=== PATIENT | male | born 1985 | race Caucasian/White ===

== ENCOUNTER 2023-04-19 11:36 | Emergency (ER) | payer BC, SELFPAY ==
[2023-04-19 11:37] VITALS: BP 153/119; PULSE 79; RESP 16; TEMP 36.2; O2SAT 98; BMI 28.5
--- NOTE | 2023-04-19 11:53 | EKG12_ITS ---
Test Reason : DIZZINESS Blood Pressure : / mmHG Vent. Rate : 079 BPM Atrial Rate : 079 BPM P-R Int : 150 ms QRS Dur : 086 ms QT Int : 364 ms P-R-T Axes : 025 -18 -02 degrees QTc Int : 417 ms Normal sinus rhythm Minimal voltage criteria for LVH, may be normal variant ( R in aVL ) Borderline ECG Confirmed by DAVID DUTTON, NAGA ([id number]), general expeditor HENRI ROBISON ([id number]) on 04/20/2023 11:03:38 AM Referred By: Confirmed By:NAGA HERNANDEZ MD
--- NOTE | 2023-04-19 11:55 | EX.ED.DYSGE1 ---
HPI <JELANI Koch - Last Filed: 04/19/23 15:00> History of Present Illness Chief Complaint: Dizziness Narrative Narrative: 38-year-old male with no past medical history presents with lightheadedness that started while standing at work this morning. He had been working for 5+ hours at that point. He states he had a C shaped blue flashing light in both eyes. No vision loss or double vision. No headache, chest pain, palpitations, shortness of breath, or N/V/D. He felt a little better with sitting down but still feels lightheaded and out of it so presents for evaluation. He takes no medications PFSH <JELANI Koch - Last Filed: 04/19/23 15:00> PFSH Home Medications No Known/Unobtainable [No Known Home Medications] 02/18/14 [History Last Taken Unknown] Allergy/AdvReac Type Severity Reaction Status Date / Time amoxicillin Allergy Rash Verified 10/06/18 09:34 Penicillins Allergy Rash Verified 10/06/18 09:34 Social History (Updated 10/06/18 @ 10:07 by JELANI Brian) Smoking Status: Never smoker alcohol intake: current ROS <JELANI Koch - Last Filed: 04/19/23 15:00> ROS ED ROS Narrative Constitutional: Negative for fever, chills, malaise. CVS: Negative for palpitations, chest pain, syncope. Respiratory: Positive for cough. Negative for shortness of breath. GI: Negative for abdominal pain, nausea, vomiting, diarrhea, melena, hematochezia. : Negative for dysuria. Neuro: Negative for headache, motor/sensory dysfunction. EXAM <JELANI Koch - Last Filed: 04/19/23 15:00> Physical Exam Narrative Exam Narrative: CONST: Patient sitting in no acute distress. EYES: Normal inspection. PERRL, EOMI, no nystagmus. No visual field deficits. ENT: Normal inspection, moist mucous membranes. NECK: Normal inspection. RESP: No respiratory distress, CTAB. CVS: Regular rate and rhythm, no murmur, no gallop. ABD: Soft and nontender, no guarding or rebound, nondistended. SKIN: Color normal, no rash, warm, dry, intact. EXTREMITIES: Normal appearance, no pedal edema. NEURO: Oriented x4. PSYCH: Normal affect. Const Vital Signs: 04/19/23 11:37 04/19/23 12:15 04/19/23 13:37 Temperature 97.2 F L Temperature Source Temporal Pulse Rate 79 87 Pulse Rate [Lying] 88 Pulse Rate [Sitting (for 1 minute prior to obtaining)] 82 Pulse Rate [Standing (for 1 minute prior to obtaining)] 97 Respiratory Rate 16 18 Blood Pressure 153/119 H Blood Pressure [Lying] 124/78 H Blood Pressure [Sitting (for 1 minute prior to obtaining)] 131/93 H Blood Pressure [Standing (for 1 minute prior to obtaining)] 137/96 H Blood Pressure Mean 130 Blood Pressure Mean [Lying] 93 Blood Pressure Mean [Sitting (for 1 minute prior to obtaining)] 105 Blood Pressure Mean [Standing (for 1 minute prior to obtaining)] 109 Pulse Ox 98 100 Oxygen Delivery Method Room Air <Dr. Buster Chaves DO - Last Filed: 04/19/23 13:32> Physical Exam Const Vital Signs: 04/19/23 11:37 04/19/23 12:15 04/19/23 13:37 Temperature 97.2 F L Temperature Source Temporal Pulse Rate 79 87 Pulse Rate [Lying] 88 Pulse Rate [Sitting (for 1 minute prior to obtaining)] 82 Pulse Rate [Standing (for 1 minute prior to obtaining)] 97 Respiratory Rate 16 18 Blood Pressure 153/119 H Blood Pressure [Lying] 124/78 H Blood Pressure [Sitting (for 1 minute prior to obtaining)] 131/93 H Blood Pressure [Standing (for 1 minute prior to obtaining)] 137/96 H Blood Pressure Mean 130 Blood Pressure Mean [Lying] 93 Blood Pressure Mean [Sitting (for 1 minute prior to obtaining)] 105 Blood Pressure Mean [Standing (for 1 minute prior to obtaining)] 109 Pulse Ox 98 100 Oxygen Delivery Method Room Air MDM <JELANI Koch - Last Filed: 04/19/23 15:00> [facility] Narrative Medical decision making narrative: Patient presents with lightheadedness. He states he had some blue flashing lights in both eyes which has resolved. He appears well and nontoxic. Vital signs stable. His exam is unremarkable. He has no focal neurological deficits so I do not think a CT brain is indicated. Orthostatic vital signs are negative prior to administration of IV fluids and blood work was ordered. CBC and BMP are within normal limits. EKG is sinus rhythm with no ischemic changes and troponin is 6. He has no chest pain, shortness of breath, or abnormal vital signs I do not suspect PE or think this needs worked up. CXR shows no acute process. He states he feels better after IV fluids will be discharged home to follow-up with primary care. Lab Data Attestation: I reviewed the patient's lab results. Labs: Laboratory Results - last 24 hr 04/19/23 12:00 WBC 7.4 RBC 5.01 Hgb 15.1 Hct 43.3 MCV 86.4 MCH 30.1 MCHC 34.9 RDW Std Deviation 39.1 RDW Coeff of Marisa 12.9 Plt Count 207 MPV 11.0 Immature Gran % (Auto) 1.300 H Neut % (Auto) 66.6 Lymph % (Auto) 22.7 [place] % (Auto) 5.9 Eos % (Auto) 2.7 Baso % (Auto) 0.8 Absolute Neuts (auto) 4.9 Absolute Lymphs (auto) 1.68 Nucleated RBC % 0 Sodium 138 Potassium 4.0 Chloride 106 Carbon Dioxide 27.0 Anion Gap 5 BUN 26 H Creatinine 1.10 Estim Creat Clear Calc 96.03 Est GFR (MDRD) Af Amer 96 Est GFR (MDRD) Non-Af 79 BUN/Creatinine Ratio 23.6 H Glucose 114 H Calcium 9.1 Troponin I High Sens 6 Radiography Diagnostic Testing: Clinical Impression(s) from Imaging Studies Chest X-Ray 04/19/23 12:22 IMPRESSION: No radiographic evidence of acute cardiopulmonary disease. Electronically Signed: Dell Acosta MD at 13:02 EST , ED attending interpretation of 1-view chest x-ray shows normal heart size, no acute infiltrate, edema, or effusion. EKG Initial EKG: Attestation: I personally reviewed and interpreted this EKG as follows: Interpretation: Sinus Rhythm and No Acute Injury Pattern Comments: Normal sinus rhythm at 79 bpm Normal intervals, no acute ischemic change <Dr. Buster Chaves, DO - Last Filed: 04/19/23 13:32> [facility] Lab Data Labs: Laboratory Results - last 24 hr 04/19/23 12:00 WBC 7.4 RBC 5.01 Hgb 15.1 Hct 43.3 MCV 86.4 MCH 30.1 MCHC 34.9 RDW Std Deviation 39.1 RDW Coeff of Marisa 12.9 Plt Count 207 MPV 11.0 Immature Gran % (Auto) 1.300 H Neut % (Auto) 66.6 Lymph % (Auto) 22.7 [place] % (Auto) 5.9 Eos % (Auto) 2.7 Baso % (Auto) 0.8 Absolute Neuts (auto) 4.9 Absolute Lymphs (auto) 1.68 Nucleated RBC % 0 Sodium 138 Potassium 4.0 Chloride 106 Carbon Dioxide 27.0 Anion Gap 5 BUN 26 H Creatinine 1.10 Estim Creat Clear Calc 96.03 Est GFR (MDRD) Af Amer 96 Est GFR (MDRD) Non-Af 79 BUN/Creatinine Ratio 23.6 H Glucose 114 H Calcium 9.1 Troponin I High Sens 6 Radiography Diagnostic Testing: Clinical Impression(s) from Imaging Studies Chest X-Ray 04/19/23 12:22 IMPRESSION: No radiographic evidence of acute cardiopulmonary disease. Electronically Signed: Dell Acosta MD at 13:02 EST , Treatment and Re-Evaluation :: I have personally performed a face to face assessment of the patient and have reviewed the GAYATHRI Note. I performed a substantive portion of the visit including all aspects of the following. My torrez findings include: History: Patient presents with dizziness that began today while at work. Patient states he felt lightheaded. Patient denies falling or passing out. Patient states he did have some visual changes where he saw a blue dot in his vision. Patient states his vision became blurry at that time. Patient states this has resolved. Exam: Vital signs are stable. Patient is afebrile. Patient is in no acute distress. Pupils are equal, round, and reactive to light bilaterally. Extraocular muscles are intact. Conjunctiva is clear. Oral mucosa is pink and moist. Neck is supple. Trachea is midline. There is no JVD. Heart was regular rate and rhythm. Lungs are clear and equal bilaterally. There is good respiratory effort noted. Abdomen is soft. Bowel sounds are normal. Cranial nerves II through XII are intact. There are no focal motor or sensory deficits noted. Medical Decision Making: Differential diagnosis includes dehydration, cardiac dysrhythmia, cardiac ischemia, electrolyte abnormality, anemia, vertigo, and labyrinthitis. PA and lateral chest x-ray will be obtained to assess for pneumonia and pneumothorax. CBC will be obtained to assess for leukocytosis and anemia. Basic metabolic profile will be obtained to assess for electrolyte abnormality and renal function. High-sensitivity troponin will be obtained to assess for cardiac ischemia. EKG will be obtained to assess for cardiac dysrhythmia and cardiac ischemia. EKG was obtained. On my independent interpretation, shows normal sinus rhythm with a rate of 79. SD interval, QRS interval, and QTc intervals are within normal limits. [place] is normal. There are no acute ST or T wave changes. CBC was reviewed and was within normal limits. Basic metabolic profile was reviewed and was essentially within normal limits. BUN was slightly elevated at 26. Creatinine was normal at 1.1. High-sensitivity troponin was reviewed and was normal at 6. PA and lateral chest x-ray was obtained. There are 2 views. On my independent interpretation, lung grande are clear. There is normal cardiac silhouette. Bony thorax is normal. There is no acute process noted. Radiologist also interpreted the x-ray and agrees. Patient was given IV fluids. Patient is feeling better on reevaluation. Patient was advised of his findings. Patient was instructed to drink plenty of fluids. Patient was instructed to follow-up with his primary care physician in 5 to 7 days for further evaluation. Patient understood and was agreeable with the plan. All questions were answered. Discharge Plan Triage Chief Complaint: Dizziness ED Midlevel Provider: Meron Christensen ED Provider: Buster Chaves Dx/Rx/DC Orders Clinical Impression: Lightheadedness Instructions: ED Near-Fainting, Uncertain Cause Prescriptions: No Action No Known Home Medications Primary Care Provider: Care Physician,No Primary Referrals: Care Physician,No Primary [Primary Care Provider] - Activity Restrictions/Additional Instructions: All of your tests look normal. I recommend you rest, drink plenty of fluids, and follow-up with your primary care doctor Disposition Disposition: Home, Self Care Discharge Date/Time: 04/19/23 13:39
[2023-04-19 12:12] LABS: Absolute Lymphocyte Count 1.68 X10^3/uL (0.83-4.51); Absolute Neutrophil Count 4.9 X10^3/uL (2.0-7.7); Basophil# 0.06 X10^3/uL; Basophil% 0.8 % (0-1); Eosinophils% 2.7 % (0-5); Hematocrit 43.3 % (40-54); Hemoglobin 15.1 g/dL (13.0-16.5); Lymphocyte # 1.68 X10^3/ul (0.83-4.51); Lymphocyte % 22.7 % (19-41); Mean Corp Hgb Conc 34.9 g/dL (32-36); Mean Corpuscular Hgb 30.1 pg (27.0-32.0); Mean Corpuscular Volume 86.4 fL (80-94); Monocyte# 0.44 X10^3/uL; Monocyte% 5.9 % (0-10); NRBC Flagged by Analyzer 0 % (0-5); Neutrophil # 4.93 X10^3/uL (2.7-7.7); Neutrophil % 66.6 % (47-70); Platelet Count 207 K/mm3 (150-450); RBC Distribution Width CV 12.9 % (11.6-14.6); RBC Distribution Width SD 39.1 fl (35.1-43.9); Red Blood Count 5.01 M/mm3 (4.6-6.2); White Blood Count 7.4 K/mm3 (4.4-11.0)
[2023-04-19 12:15] VITALS: BP 124/78; BP 131/93; BP 137/96; PULSE 82; PULSE 88; PULSE 97
[2023-04-19] MEDS: 0.9% Normal Saline (1000mL) 1,000 ML 999 ML IV (12:19)
--- NOTE | 2023-04-19 12:22 | RAD_ITS ---
INDICATION: cough EXAMINATION/TECHNIQUE: X-RAY - XR Chest 2 Views COMPARISON: No relevant prior comparison study available FINDINGS: LINES/DEVICES: None. LUNGS: No consolidation, edema or effusion. No pneumothorax. MEDIASTINUM AND CARDIOVASCULAR STRUCTURES: Cardiac silhouette not enlarged. Central airways and mediastinal contour are unremarkable. BONES AND SOFT TISSUES: Unremarkable. RAD/Chest PA and Lateral IMPRESSION: No radiographic evidence of acute cardiopulmonary disease. Electronically Signed: Dell Acotsa MD at 13:02 EST ,
[2023-04-19 12:26] LABS: Anion Gap 5 (5-15); BUN 26 mg/dL (7-18); BUN/Creat Ratio 23.6 RATIO (10-20); Calcium,Total 9.1 mg/dL (8.5-10.1); Chloride 106 mmol/L (98-107); EST Glomerular Filtration Rate 79 mL/min (>60); Est Glom Filt Rate - Afr Amer 96 mL/min (>60); Estimated Creatinine Clearance 96.03 ml/min; Glucose 114 mg/dL (74-106); Sodium Level 138 mmol/L (136-145); Troponin-I HS 6 pg/mL (3.0-78.0)
[2023-04-19 13:37] VITALS: PULSE 87; RESP 18; O2SAT 100
== END 2023-04-19 13:39 | disposition home or self-care (01) ==
PROVIDERS: Physician Assistant; Emergency Provider Emergency Medicine; Visit Provider Emergency Medicine
DX: R42 Dizziness and giddiness (principal)
CPT/HCPCS: 71046; 80048; 84484; 85025; 93005; 96360; 99284; J7030; A4216